=== PATIENT | female | born 1965 | race Caucasian/White ===

== ENCOUNTER → 2019-10-07 | Outpatient (CLI) | payer OTHER ==
[2019-10-07 15:02] VITALS: BMI 29.2
--- NOTE | 2019-10-07 15:32 | P.BASOAP ---
Subjective Progress Note Date: 10/07/19 Principal diagnosis: Morbid obesity Patient will monitor her service. Last visit 5 years ago. At that time she was at 4.5 mL and had 1 mL added to her band. She has actually lost weight since then. Came in for evaluation after feeling like something was stuck for approximately 2 weeks. She says those symptoms resolved about 2-3 weeks ago. She is not interested in losing the band. Patient satisfied with her overall weight. Objective - Vital Signs Vital signs: Intake & Output 10/06/19 10/07/19 10/07/19 18:59 06:59 18:59 Weight 82.1 kg - Exam Abdomen: Soft, nontender, nondistended Assessment/Plan (1) Morbid obesity Narrative/Plan: Patient doing fairly well at this time. Recently had an stretch of time where she felt too tight. Will check esophagogram at this time. Keep band at 5.5 mL for now. Plan: Date: 10/07/19 Initial Weight: 98.43 kg Initial BMI: 35.0 Current Weight: 82.1 kg Current BMI: 29.2 Type of Surgery: Total Volume in Band: Previous Volume: Volume Removed: Volume Added: Band Size:
== END | disposition home or self-care (01) ==
LOC: BARWHC3 14:19
PROVIDERS: ATTEND Surgery
DX: Z46.51 Encounter for fitting and adjustment of gastric lap band (principal); E66.01 Morbid (severe) obesity due to excess calories; Z68.29 Body mass index [BMI] 29.0-29.9, adult; Z98.84 Bariatric surgery status
CPT/HCPCS: 99201

== ENCOUNTER → 2019-10-24 | Outpatient (CLI) | payer OTHER ==
--- NOTE | 2019-10-24 10:38 | FL ---
EXAMINATION TYPE: FL barium swallow DATE OF EXAM: 10/24/2019 COMPARISON: 04/23/2009 HISTORY: Vomiting reflux TECHNIQUE: A single contrast UGI study is performed. FINDINGS: Contrast passes from the distal esophagus through the LAP-BAND without hesitancy. No extrav asation of contrast is evident. Note is made of the marrow opening through the lap band. However, no hesitancy is appreciated. Small amount of contrast remains within the distal esophagus and secondary contractions are evident. IMPRESSIONS: 1. Some reflux from contrast within the distal esophagus is evident during the exam. 2. There appears to be narrowing through the lap band. However, no significant hesitancy passing thro ugh this region is evident.
== END | disposition home or self-care (01) ==
LOC: RADUSWWP 09:42
PROVIDERS: ATTEND Surgery
DX: K21.9 Gastro-esophageal reflux disease without esophagitis (principal); Z88.2 Allergy status to sulfonamides
CPT/HCPCS: 74220